=== PATIENT | female | born 1950 | race Caucasian/White ===

== ENCOUNTER 2016-11-29 22:14 | Observation (INO) | payer BC, OTHER ==
[~2016-11-29] VITALS: Ht 157.5 cm; Wt 86.2 kg
--- NOTE | ~2016-11-29 | HP ---
History And Physical [facility] [id number] [place]. [address] NAME: ISRAEL EDGE : 48 STATUS : DIS Terrance PAT#: [id number] AGE: 67 ADM/REG DATE : 11/29/16 MR#: [id number] REPORT SERV DATE: 02/03/17 DICTATED BY: EDGAR BEATTY DATE: 02/03/17 REPORT STATUS : Draft TRANSCRIBED BY: MODValeriy DATE: 02/03/17 DATE OF ADMISSION: 11/29/2016 CHIEF COMPLAINT: Right flank pain. HISTORY OF PRESENT ILLNESS: Ms. Edge is a very pleasant 66-year-old female with a history of right hydronephrosis and flank pain. She recently underwent ureteroscopy and stent placement. The etiology of her flank pain was thought to be ureteral kinking secondary to a cystocele. Her stent was removed yesterday. She presented to the ER with right flank pain and nausea and vomiting. She was put into the hospital for observation. Overnight, she was hydrated and she feels much better today. PAST MEDICAL HISTORY: Notable for hypertension, hypercholesterolemia, diabetes, cataracts, sleep apnea, GERD, arthritis, stroke, COPD. SURGICAL HISTORY: Appendectomy, hysterectomy, gallbladder surgery, foot surgery, urologic surgery as detailed above. FAMILY HISTORY: Noncontributory. SOCIAL HISTORY: She does not smoke, drink, or use illegal drugs. MEDICATIONS: Reviewed and listed on the chart. ALLERGIES: HER ALLERGIES ARE TO CLINDAMYCIN AND PENICILLIN. REVIEW OF SYSTEMS: Review of systems was performed. Pertinent positives are listed in the HPI. PHYSICAL EXAMINATION: VITAL SIGNS: Afebrile. Vital signs stable. GENERAL: In no acute distress, appears her stated age. HEENT: Head is normocephalic and atraumatic. LUNGS: Breathing is nonlabored. She is not in respiratory distress. HEART: Her pulse is regular in rate and rhythm. ABDOMEN: Soft, nontender, nondistended. She does not have any CVA tenderness. She is alert and oriented x3. LABS: Stable. No new imaging. ASSESSMENT AND PLAN: Ms. Edge has some renal colic after stent removal. She has gotten better with pain control and hydration. I will plan discharging her home today with some pain medication. She has been referred to a specialist to deal with her cystocele. No further interventions are needed at this time. History And Physical [facility] [address] [place]. [address] NAME: ISRAEL EDGE : 48 STATUS : DIS Terrance PAT#: [id number] AGE: 67 ADM/REG DATE : 11/29/16 MR#: [id number] REPORT SERV DATE: 02/03/17 DICTATED BY: EDGAR BEATTY DATE: 02/03/17 REPORT STATUS : Draft TRANSCRIBED BY: FAIZAN DATE: 02/03/17 MASOOD/FAIZAN Edgar Beatty MD / [id number] CC: MD Sven Brink Brenda L
[~2016-11-29 22:14] MED LIST: AGGRENOX PO; AMARYL1 MG PO; ASAB PO; BENTYL10 PO; BIST PO; CARTIA XT180 MG/24 PO; DILT-XR180 MG PO; DOLOPHINE10 MG PO; GLUCPH PO; K-TABS10 MEQ PO; LIPITOR40 PO; MACROBID PO; MAX25; MAX25 PO; MIRALAX POWDER1 PKT PO; NEUR300 PO; NEXIUM40 PO; OXYIR5 MG PO; PRAVAC PO; PROAIR HFA INH; STOOL SOFTEN100 MG PO; ZANTAC300 MG PO
[2016-11-30 00:51] LABS: ASCORBIC ACID (UR NOT ORDER) NEG (NEG); BILIRUBIN, URINE NEGATIVE (NEG); ER URINALYSIS TAT 0 Hrs 00 Mins; KETONE, URINE NEGATIVE (NEG); LEUKOCYTE ESTERASE(NOT OR NEG (NEG); NITRITE (URINE) NEG (NEG); WBC (NOT ORDERED) (RFLEX) 58 (0-5)
[2016-11-30 03:08] LABS: BASOPHILS 0.1 %; BASOPHILS ABSOLUTE 0.01 10/3/uL (0.0-0.16); EOSINOPHILS 0.3 %; EOSINOPHILS ABSOLUTE 0.03 10/3/uL (0.0-0.53); HEMATOCRIT 42.8 % (36.0-48.0); HEMOGLOBIN 14.4 g/dL (12.0-16.0); IMMATURE GRANULOCYTES 0.2 %; IMMATURE GRANULOCYTES ABSOLUTE 0.02 10/3/uL (0.0-0.11); LYMPHOCYTES 17.9 %; LYMPHOCYTES ABSOLUTE 1.73 10/3/uL (0.67-4.30); MEAN CORPUS HGB CONC 33.6 g/dL (32.0-36.0); MEAN CORPUSCULAR HEMOGLOB 27.6 pg (26.0-34.0); MEAN PLATELET VOLUME 9.8 fL (9.2-13.0); MONOCYTES 7.6 %; MONOCYTES ABSOLUTE 0.74 10/3/uL (0.21-1.20); NEUTROPHILS 73.9 %; NEUTROPHILS ABSOLUTE 7.16 10/3/uL (2.02-8.40); PLATELET COUNT 226 10/3/uL (150-400); RBC DISTRIBUTION WIDTH 13.7 % (12.0-16.0); RED CELL COUNT 5.22 10/6/uL (4.0-5.6); WHITE BLOOD CELLS 9.7 10/3/uL (4.5-10.5)
[2016-11-30 03:13] LABS: MANUAL DIFF NO %
[2016-11-30 03:21] LABS: CHLORIDE, SERUM 93 MMOL/L (96-112); CO2 (CARBON DIOXIDE) 32 MMOL/L (24-34); CREATININE 0.94 MG/DL (0.55-1.02); GFR AFRICAN AMERICAN 73 ML/MIN (>=60); GFR NON AFRICAN AMERICAN 63 ML/MIN (>=60)
[2016-11-30 03:26] LABS: SODIUM, SERUM 132 MMOL/L (135-148)
[2016-11-30 03:27] LABS: BUN (BLOOD UREA NITROGEN) 16 MG/DL (6-23); GLUCOSE, SERUM 240 MG/DL (60-99); POTASSIUM, SERUM 3.9 MMOL/L (3.5-5.3)
[2016-11-30] MEDS ORDERED: CARTIA XT180 MG/24 PO (10:47)
[2016-11-30] MEDS ORDERED: AGGRENOX PO (10:47)
[2016-11-30] MEDS ORDERED: LIPITOR40 PO (10:47)
[2016-11-30] MEDS ORDERED: AMARYL1 MG PO (10:48)
[2016-11-30] MEDS ORDERED: NEUR300 PO (10:48)
[2016-11-30] MEDS ORDERED: LEVAQUIN750 MG PO (10:48)
[2016-11-30] MEDS ORDERED: KDUR10 PO (10:49)
[2016-11-30] MEDS ORDERED: RANITIDINE300 MG PO (10:49)
[2016-11-30] MEDS ORDERED: MIRALAX POWDER1 PKT PO (10:49)
[2016-11-30] MEDS ORDERED: GLUCPH PO (10:49)
[2016-11-30] MEDS ORDERED: PROAIR HFA INH (10:50)
[2016-11-30] MEDS ORDERED: ROXICODONE15 MG PO (10:50)
[2016-11-30] MEDS ORDERED: NEXIUM40 PO (10:50)
[2016-11-30] MEDS ORDERED: DYAZIDE1 CAP PO (10:50)
[2016-11-30] MEDS ORDERED: MAXIMUM D3 PO (10:51)
[2016-11-30] MEDS ORDERED: RESTASIS OPH (10:51)
== END 2016-11-30 19:23 | disposition home or self-care (01) ==
LOC: ENRESERV → ENRESERVTM → ENRESERVDT → ER 22:14 → 4SO 23:34 → 6NO 23:34 → ER 11-30 04:13 → 4SO 11-30 08:25
PROVIDERS: Hospitalist
DX: N23 Unspecified renal colic (principal); K21.9 Gastro-esophageal reflux disease without esophagitis; I10 Essential (primary) hypertension; E78.00 Pure hypercholesterolemia, unspecified; E11.9 Type 2 diabetes mellitus without complications; J44.9 Chronic obstructive pulmonary disease, unspecified; M19.90 Unspecified osteoarthritis, unspecified site; Z87.891 Personal history of nicotine dependence; Z86.73 Personal history of transient ischemic attack (TIA), and cerebral infarction without residual deficits; Z90.49 Acquired absence of other specified parts of digestive tract; Z90.710 Acquired absence of both cervix and uterus; Z88.0 Allergy status to penicillin; Z88.1 Allergy status to other antibiotic agents; Z91.041 Radiographic dye allergy status; Z98.890 Other specified postprocedural states
CPT/HCPCS: 74000; 80048; 81001; 82962; 85025; 87086; 96374; 96375; 96376; 99285; A9270-GY; G0378; J1170; J1885; J1956; J2405